=== PATIENT | female | born 1960 | race Caucasian/White ===

== ENCOUNTER 2024-01-23 09:01 | Outpatient (CLI) | payer BC, SELFPAY ==
--- NOTE | ~2024-01-23 | NM_ITS ---
EXAMINATION: NM hepatobiliary w pharm DATE: 01/23/2024 12:10 CDT INDICATION: Epigastric pain COMPARISON: Ultrasound dated 01/23/2024 TECHNIQUE: 5.4 millicuries Choletec was administered intravenously. Scintigraphic images of the abdo men were obtained for one hour. 1 mcg of cholecystokinin was then administered with additional 30 min latrell imaging of the abdomen. Gallbladder ejection fraction was calculated by the technologist. FINDINGS: There is homogeneous tracer uptake by the liver. Common bile duct activity is seen at 15, and gallbladder activity by 20. There is radiotracer activity in the proximal small bowel loops by 6 0. Following administration of cholecystokinin, gallbladder ejection fraction is calculated to be 24 %. IMPRESSION: 1. Patent cystic duct and common bile duct. No scintigraphic evidence for acute cholecystitis. 2. Gallbladder ejection fraction at low (normal is 35% or greater). This is nonspecific, but can be seen with acalculous gallbladder disease, to include chronic acalculous cholecystitis, gallbladder d yskinesia, or cystic duct syndrome. Reviewed, dictated and finalized at location B. IMPRESSION: 1. Patent cystic duct and common bile duct. No scintigraphic evidence for acu te cholecystitis. 2. Gallbladder ejection fraction at low (normal is 35% or greater). This is n onspecific, but can be seen with acalculous gallbladder disease, to include chr onic acalculous cholecystitis, gallbladder dyskinesia, or cystic duct syndrome.
--- NOTE | ~2024-01-23 | US_ITS ---
Limited ABDOMINAL ULTRASOUND Ordering provider: Porfirio Bethea History: . R10.13 - Epigastric pain . Comparison: None. FINDINGS: LIVER: Normal size and echotexture. No focal hepatic lesions or perihepatic fluid collections are lesvia ntified. Normal flow of the portal vein. GALLBLADDER: Echogenic nonmobile foci are seen in the wall of the gallbladder which may be polyps. Fo llow-up advised. The largest measures 0.9 x 0.7 x 0.8 cm. No evidence for stones, sludge, gallbladder wall thickening or pericholecystic fluid collections. A negative sonographic Pozo's sign was noted . BILIARY DUCTS: No evidence for intra or extrahepatic biliary dilation. Common bile duct measures 3.3 mm in diameter which is within normal limits. PANCREAS: Hypoechoic area in the mid and anterior is measuring 1 x 0.9 x 0.9 cm. Follow-up advised. O therwise, Normal echotexture and size. UPPER ABDOMINAL AORTA: Normal in caliber. IVC: Patent. FREE FLUID: None. IMPRESSION: Echogenic foci in the gallbladder suggestive of polyps. Follow-up advised. Hypoechoic area in the head of the pancreas. Follow-up advised.. Reviewed, dictated and finalized at location A.
== END 2024-01-23 09:02 | disposition home or self-care (01) ==
LOC: ANHIMG 09:03
PROVIDERS: PCP Internal Medicine; Visit Provider Surgery
DX: K82.8 Other specified diseases of gallbladder (principal); R10.13 Epigastric pain
CPT/HCPCS: 76705; 78227; A9537; J2805

== ENCOUNTER 2024-02-24 10:06 | Outpatient (CLI) | payer BC, SELFPAY ==
--- NOTE | 2024-02-24 10:08 | ECG_ITS ---
Test Date: 2024-02-24 10:35:44 Measurements Intervals [place] Rate: 76 P: 61 NV: 178 QRS: -11 QRSD: 82 T: 16 QT: 365 QTc: 410 Interpretive Statements SINUS RHYTHM LOW QRS VOLTAGE IN PRECORDIAL LEADS [QRS DEFLECTION < 1.0 mV IN CHEST LEADS] ANTEROSEPTAL MYOCARDIAL INFARCTION [40+ ms Q WAVE IN V1-V4], PROBABLY OLD No previous ECG available for comparison Electronically Signed On 02-24-2024 11:02:15 CDT by Sebastian Mccracken M.D.
[2024-02-24 12:07] LABS: Basophils Absolute Auto 0.1 K/mm3 (0.0-0.1); Basophils Percent Auto 0.4 % (0.2-1.2); Eosinophils Absolute Auto 0.1 K/mm3 (0-0.3); Eosinophils Percent Auto 0.6 % (0-4.4); Hematocrit 41.5 % (37.0-47.0); Hemoglobin 13.7 g/dL (12.0-15.0); Immature Granulocyte Absolute 0.05 K/mm3 (0.00-0.031); Immature Granulocyte Percent A 0.4 % (0-0.5); Lymphocytes Absolute Auto 1.46 K/mm3 (0.9-3.2); Lymphocytes Percent Auto 10.7 % (18.3-44.2); Mean Corpuscular Hemoglobin 30.7 pg (26-34); Mean Platelet Volume 10.1 fl (7.4-10.4); Neutrophils Percent Auto 80.9 % (45.5-73.1); Platelet Count Result 280 k/mm3 (150-375); Red Blood Count 4.46 M/mm3 (4.2-5.4); White Blood Count 13.6 K/mm3 (4.5-10.0)
[2024-02-24 12:25] LABS: Alanine Aminotransferase 28 U/L (6-35); Albumin Level 4.5 g/dL (3.5-5.1); Alkaline Phosphatase 90 U/L (38-126); Amylase 66 U/L (30-110); Aspartate Amino Transferase 33 U/L (14-36); Bilirubin,Total 0.5 mg/dL (0.2-1.3); Lipase 90 U/L (23-300)
== END 2024-02-24 10:07 | disposition home or self-care (01) ==
PROVIDERS: PCP Internal Medicine; Visit Provider Surgery
DX: K81.1 Chronic cholecystitis (principal); R94.31 Abnormal electrocardiogram [ECG] [EKG]
CPT/HCPCS: 36415; 80076; 82150; 83690; 85025; 86850; 86900; 86901; 93005

== ENCOUNTER 2024-02-25 10:43 | Outpatient (CLI) | payer BC, SELFPAY ==
[2024-02-25 11:00] LABS: Add Urine Microscopic? NO; Appearance Urine Clear (Clear); Bilirubin Urine Negative (Negative); Blood Urine Negative (Negative); Color Urine Yellow (Yellow); Glucose Urine UA Negative (Negative); Ketones Urine Negative (Negative); Leukocyte Esterase Ur Negative LEU/UL (Negative); Nitrate Urine Negative (Negative); Protein Urine Negative (Negative); Specific Grav Ur 1.005 (1.001-1.035); Urobilinogen Urine 0.2 mg/dL (<2.0); pH Urine 7.5 (5.0-9.0)
== END 2024-02-25 10:44 | disposition home or self-care (01) ==
LOC: ANHLAB 10:44
PROVIDERS: PCP Internal Medicine; Visit Provider Surgery
DX: D72.829 Elevated white blood cell count, unspecified (principal)
CPT/HCPCS: 81003

== ENCOUNTER 2024-02-27 00:20 | Day surgery (SDC) | payer BC, SELFPAY ==
[2024-02-20 09:18] VITALS: BMI 22.5
--- NOTE | 2024-02-20 09:26 | PC.NURSE ---
Report to the Outpatient Waiting Room, entrance under the green pavilion located off [facility], at time _1130_ on date _[id number]_. Planned Procedure Time: _130pm_.? Time changes happen often and if your time is changed the preop area will call you the afternoon before. - You and your visitor will be asked to self-screen and do not enter if you have any COVID symptoms. Please call surgeon if you need to reschedule. - A mask is optional within the hospital at this time. Patients may have clear liquids (water, carbonated beverages, clear teas, apple juice) until 3 hours prior to surgery with a maximum of 20 ounces. - No food from midnight until time of surgery and no smoking Take only the following medications with a SIP of water on the morning of surgery: __Trelegy, Azelastine, Flonase__Ok to use nebulizer or albuterol inhaler if needed.__ DO NOT STOP ANY OF YOUR OTHER PRESCRIPTION MEDICATIONS PRIOR TO SURGERY EXCEPT THE FOLLOWING Medications to discontinue per physician ___All vitamins and supplements___ Date to take last [id number]__[id number]_ Please no make-up, nail cuban, hairspray, perfume, deodorant, or body powder the day of surgery.? No jewelry (including any body piercings) or valuables the day of surgery, leave them at home.? Please take a shower or bath the night before, or the morning of, surgery with an antibacterial soap.? Wear comfortable, loose fitting clothing.? - Jewelry must be removed prior to entering the operating room.? Rings and piercings that are not removed may be cut off. - The hospital will not accept responsibility for valuables.? - Please leave all valuables, including medications, at home the day of surgery. If you are going home after surgery, a licensed seasonal driver must drive you home.? - NO public transportation without another adult if you receive anesthesia. - We recommend that an adult stay with you for 24 hours following discharge. - We also recommend that you do not drive, make important decision, drink alcoholic beverages, or take any drugs that were not prescribed by your health care provider for at least 24 hours after your discharge time. Follow any additional instructions given to you from your surgeon. Telephone instructions given to __Tiffany___and asked if any additional questions and then verbalized understanding. Patient advised to call surgeon office or pre surgery nurse liaison [phone] if any additional questions.
--- NOTE | 2024-02-26 17:23 | WPDANESEPPF ---
Anes - Initial Pre Proc Eval Procedure: Operation Date: 02/27/24 12:00 Proposed Procedures p Laparoscopic Cholecystectomy - Porfirio Bethea MD Date/Time: 02/26/24 17:23 Surgeon: Porfirio Bethea MD Pre Op Diagnosis: chronic cholecystitis Patient Data Age: 63 Gender: F Height: 1.65 m Weight: 61.4 kg Allergies Allergy/AdvReac Type Severity Reaction Status Date / Time clavulanic acid Allergy Intermediate Rash Verified 02/27/24 10:36 levofloxacin Allergy Intermediate Rash Verified 02/27/24 10:36 doxycycline Allergy Mild Hives Verified 02/27/24 10:36 Home Medications Medication Instructions Recorded Confirmed Type albuterol 90 mcg/actuation aerosol 90 mcg inhalation QID PRN Dyspnea 01/13/24 02/27/24 History inhaler azelastine 137 mcg (0.1 %) nasal 137 mcg intranasal Q12H 01/13/24 02/27/24 History spray cetirizine 10 mg tablet (All Day 10 mg PO DAILY 01/13/24 02/27/24 History Allergy (cetirizine)) esomeprazole magnesium 40 mg 40 mg PO DAILY 01/13/24 02/27/24 History capsule,delayed release estradiol 0.01% (0.1 mg/gram) 1 appful vaginal DAILY 01/13/24 02/27/24 History vaginal cream (Estrace) fluticasone propionate 50 1 spray intranasal DAILY 01/13/24 02/27/24 History mcg/actuation nasal spray,suspension levalbuterol HCl 1.25 mg/0.5 mL 1.25 mg inhalation Q4H PRN Dyspnea 01/13/24 02/27/24 History solution for nebulization loratadine 10 mg tablet 10 mg PO DAILY PRN Allergy Symptoms 01/13/24 02/27/24 History montelukast 10 mg tablet 10 mg PO DAILY 01/13/24 02/27/24 History triamcinolone acetonide 0.05 % 1 applic topical DAILY PRN hives 01/13/24 02/27/24 History topical ointment calcium 250 mg (as 1 tablet PO DAILY 02/20/24 02/27/24 History citrate)-vitamin D3 5 mcg (200 unit) tablet cholecalciferol (vitamin D3) 50 50 mcg PO DAILY 02/20/24 02/27/24 History mcg (2,000 unit) capsule (Vitamin D3) diphenhydramine HCl 25 mg capsule 25 mg PO TID PRN Itching 02/20/24 02/27/24 History (Benadryl) famotidine 10 mg tablet (Pepcid AC) 10 mg PO DAILY PRN Acid Reflux 02/20/24 02/27/24 History fluticasone fur. 200 mcg-umeclid 1 inh inhalation DAILY 02/20/24 02/27/24 History 62.5 mcg-vilant 25 mcg inhalat.powder (Trelegy Ellipta) magnesium citrate,mag oxide 250 mg 250 mg PO DAILY 02/20/24 02/27/24 History capsule vitamin E (dl, acetate) 180 mg 180 mg PO DAILY 02/20/24 02/27/24 History (400 unit) capsule Patient hx anesthesia problems: post op nausea/vomiting Family hx anesthesia problems: none Results Review: All pre-operative results and documents have been reviewed as part of the pre-operative evaluation. [facility] Past Medical History Medical History Allergic Asthma GERD (gastroesophageal reflux disease) Osteoporosis Family History Family History Other Asthma Diabetes mellitus Heart disease Hypertension Social History Social History Smoking status: Never smoker Alcohol intake: current Drinks per week: 2 Substance use: never Current Housing: Decline to Answer Concerned About Future Housing: Decline to Answer Difficulty Paying Gas/Electric Bills: Decline to Answer Difficulty Paying for Meds: Decline to Answer Currently Unemployed: Decline to Answer Education: Decline to Answer Difficulty w/ Childcare or Family Care: Decline to Answer Living arrangements: with family Spiritual care concerns: No Anes - Eval Final PreProcedure Day of Procedure 02/26/24 17:23 Patient weight: normal Heart: regular rate and rhythm Lungs: clear to auscultation, normal air movement and other (Patient states she used her inhaler this morning) Airway: Mallampati scale class II Neurological: alert and oriented Last oral intake: >/= 8 hours ASA classification: II Emergent: no Anesthetic plan: proceed Anesthesia type and monitoring: general ETT and standard monitoring Results Review: All pre-operative results and documents have been reviewed as part of the pre-operative evaluation. Patient states asthma and GERD are well controlled. Informed Consent: The patient's anesthetic plan and its attendant risks and benefits were discussed with the patient/family/POA. Questions were solicited and answers provided to the satisfaction of the patient/family/POA.
[2024-02-27] VITALS (16 sets, daily range): BP systolic 105–159; BP diastolic 55–85; PULSE 52–87; RESP 12–20; TEMP 36.3–36.4; O2SAT 97–100
[2024-02-27] MEDS: ACETAMINOPHEN 500 MG TABLET 1000 MG PO (10:20)
[2024-02-27] MEDS: LACTATED RINGERS 1,000 ML 30 ML IV CONT ×2 (10:25→13:40)
[2024-02-27] MEDS: KETOROLAC 15 MG/ML VIAL (*BKC) IV PUSH (10:28)
--- NOTE | 2024-02-27 11:55 | WPDHPUPDATE1 ---
History and Physical Update Update Date/Time: 02/27/24 11:55 History and Physical has been reviewed, including an updated exam of the patient. There are NO changes in the patient's condition. Risks, benefits, and alternatives have been discussed and questions answered. Patient agrees to proceed with procedure.
[2024-02-27] MEDS: SCOPOLAMINE 1 MG PATCH 1 PATCH TRANSDERM (12:00)
[2024-02-27] MEDS: ceFAZolin 2 GM/D5W 50 ML 2 GM/50 ML BAG IVPB (12:08)
[2024-02-27 12:09] LABS: Basophils Absolute Auto 0.1 K/mm3 (0.0-0.1); Basophils Percent Auto 0.6 % (0.2-1.2); Eosinophils Absolute Auto 0.1 K/mm3 (0-0.3); Eosinophils Percent Auto 0.5 % (0-4.4); Hematocrit 41.3 % (37.0-47.0); Hemoglobin 13.4 g/dL (12.0-15.0); Immature Granulocyte Absolute 0.05 K/mm3 (0.00-0.031); Immature Granulocyte Percent A 0.5 % (0-0.5); Lymphocytes Absolute Auto 1.68 K/mm3 (0.9-3.2); Lymphocytes Percent Auto 16.8 % (18.3-44.2); Mean Corpuscular HGB Conc 32.4 g/dl (32-36); Mean Corpuscular Hemoglobin 29.7 pg (26-34); Mean Corpuscular Volume 91.6 fl (80-100); Mean Platelet Volume 9.1 fl (7.4-10.4); Monocytes Absolute Auto 0.8 K/mm3 (0.1-0.6); Monocytes Percent Auto 7.8 % (2.6-8.5); Neutrophils Absolute Auto 7.4 K/mm3 (1.3-6.7); Neutrophils Percent Auto 73.8 % (45.5-73.1); Platelet Count Result 245 k/mm3 (150-375); Red Blood Count 4.51 M/mm3 (4.2-5.4); Red Cell Distribution Width 12.6 % (11.5-14.5)
[2024-02-27] MEDS: BUPIVACAINE/EPINEPHRINE 0.5% 50 ML VIAL 20 ML INFILTRATE (12:39)
--- NOTE | 2024-02-27 13:40 | W.PM.PROC2 ---
Procedure Note - Detailed Date of Procedure 02/27/24 Pre-op Diagnosis chronic cholecystitis Post-op Diagnosis Other (Chronic cholecystitis with cholelithiasis) Procedure Performed Laparoscopic cholecystectomy Surgeon Porfirio Bethea MD Flute Teacher Laurel Gallardo [facility] Anesthesia General and Local Indications Patient is a 63-year-old woman who has been experiencing postprandial epigastric pressure-like pain, particularly after greasy or fatty meals. She initially had a CT scan which did not show any abnormalities in the gallbladder but did show a hiatal hernia. She was seen in the office and an ultrasound was done. This showed some possible polyps along the wall of the gallbladder. HIDA scan showed a low gallbladder ejection fraction of 24%. She is taken to surgery now for laparoscopic cholecystectomy. Findings Chronic inflammation, no biliary ductal dilatation, no liver abnormalities. Small opening in the gallbladder near the fundus did show small stones in the gallbladder. No other significant abnormalities Description of Procedure Patient was taken to surgery and induced into general anesthesia. The abdomen is prepped and draped. Trocars were placed in the usual fashion using applied Medical optical trocars and a 5 mm camera. The gallbladder was freed from some omental adhesions. A laparoscopic aspirator was then used to decompress the gallbladder. The cholecystotomy was closed with a Vicryl endoloop. The gallbladder was then retracted anterosuperiorly. Dissection was carried out in the cholecystohepatic triangle. The cystic duct and cystic artery were dissected out clearly. The right hepatic artery came over the common bile duct suggesting an SMA origin. The gallbladder was dissected out away from the liver over its lower 3rd. Critical view was achieved. The cystic duct and cystic artery were then securely clipped and divided. Gallbladder was dissected free of its remaining attachments to the liver. Gallbladder was placed in an Endo-Catch bag and retrieved easily through the 10 11 epigastric trocar. We then looked at the gallbladder fossa. There was still some oozing and we used cautery to achieve hemostasis. We irrigated and suctioned the right upper quadrant repeatedly. All looked good with no evidence of bleeding or bile leak. We then evacuated CO2 and removed the trocar sleeves. Skin wounds were closed with subcuticular 4-0 Monocryl skin suture. Wounds were dressed with Exofin surgical adhesive. Sponge needle counts were correct x2. Estimated Blood Loss -10 Drains No Packing No Pathology Yes (Gallbladder) Complications None Condition Stable Disposition PACU [facility] Billing Surgery - Charge Forward: Surgery Billing (Laparoscopic cholecystectomy)
[2024-02-27] MEDS: fentaNYL CITRATE INJ (*CRX) 100 MCG/2 ML VIAL 25 MCG IV PUSH ×4 (14:15→14:28)
[2024-02-27] MEDS: HYDROmorphone HCL INJ (*CRX) 1 MG/ML SYR 0.5 MG IV PUSH (15:06)
[2024-02-27] MEDS: ONDANSETRON INJ 4 MG/2 ML VIAL IV PUSH (15:48)
[2024-02-27] MEDS: diphenhydrAMINE HCl INJ 50 MG/ML VIAL 12.5 MG IV PUSH (16:17)
== END 2024-02-27 18:06 | disposition home or self-care (01) ==
PROVIDERS: PCP Internal Medicine; Visit Provider Surgery
PROC: 0FT44ZZ Resection of Gallbladder, Percutaneous Endoscopic Approach (ICD-10-PCS; CPT 47562; principal; 2024-02-27 12:00)
DX: R93.89 Abnormal findings on diagnostic imaging of other specified body structures (principal); K81.1 Chronic cholecystitis; K21.9 Gastro-esophageal reflux disease without esophagitis; J45.909 Unspecified asthma, uncomplicated; M81.0 Age-related osteoporosis without current pathological fracture; Z79.51 Long term (current) use of inhaled steroids; Z82.49 Family history of ischemic heart disease and other diseases of the circulatory system
CPT/HCPCS: 47562; 36415; 85025; 88304; A9270; J0690; J1100; J1171; J1200; J1885; J2003; J2250; J2371; J2405; J2704; J3010; J7120

== ENCOUNTER 2024-08-24 07:55 | Outpatient (CLI) | payer BC, SELFPAY ==
--- NOTE | ~2024-08-24 | US_ITS ---
Limited ABDOMINAL ULTRASOUND (Doppler ultrasound interrogation techniques used as needed for this exdominguez m.) Ordering provider: Porfirio Bethea MD History: . R93.5 - Abnormal findings on diagnostic imaging of other ... . Comparison: None. FINDINGS: PANCREAS: Hypoechoic area seen measuring 1 x 1 x 0.9 cm. Normal echotexture and size. PORTAL VEIN: Hepatopedal flow demonstrated. LIVER: Normal size and echotexture. The liver measures 13.8 cm. . No focal hepatic lesions or perihep atic fluid collections are identified. BILIARY DUCTS: No intra or extrahepatic biliary dilation. Common bile duct measures 4.5 mm in diamete r which is normal for patient's age. GALLBLADDER: Status post cholecystectomy. IVC: Patent. Abdominal aorta: Patent. FREE FLUID: None visualized within the upper abdomen. IMPRESSION: Cyst in the pancreas at the junction of the head with the body. IPMN is possible. Follow-up advised. Otherwise, normal limited abdominal ultrasound. Reviewed, dictated and finalized at location A. IMPRESSION: Cyst in the pancreas at the junction of the head with the body. IPMN is possibl e. Follow-up advised. Otherwise, normal limited abdominal ultrasound.
--- OUTSIDE RECORDS SUMMARY | 2024-08-24 08:04 | XMS_ITS | Data Portability ---
Author Organization [facility] [employer] , [facility] Address [address] [place] [address] Assessment No assessment recorded. Plan of Treatment Reminders Order Date Submit Date Provider Last Modified By Organization Details Last Modified Time Details Appointments None recorded. Lab HPV E6+E7 mRNA, qualitativ e PCR, cervix 2021 022 [facility] Marcelino, [address] [place] [address], [address], 16:39:48 pap, LB 2021 022 [employer] [employer] [facility], [address] [place], [address], 16:40:44 Referral None recorded. Procedures None recorded. Surgeries None recorded. Imaging MAMMO, screening, digital, bilateral 2021 022 [email or web address] Not available 14:04:11 Medication Orders Premarin 0.625 mg/gram vaginal cream 2021 022 [id number] [facility], [facility] [place], [address], 11:29:54 Patient TargetsNo targets recorded. Patient Instructions Encounter Date Encounter Id Patient Instructions Last Modified By Organization Details Last Modified Time 07/10/2021 [id number] A healthy lifestyle: care instructions [email or web address] Not available 07/10/2021 11:29:54 calcium and vitamin D combination [email or web address] Not available 07/10/2021 11:29:55 depression (wome n only) [email or web address] Not available 07/10/2021 11:29:55 eating healthy foods: care instructions [email or web address] Not available 07/10/2021 11:29:54 exercise program : getting started [email or web address] Not available 07/10/2021 11:29:54 protect bone wit h calcium and vitamin D [email or web address] Not available 07/10/2021 11:29:55 osteoporosis education [email or web address] Not available 07/10/2021 11:29:55 breast self-exam : care instructions [email or web address] Not available 07/10/2021 11:29:55 Reason for Referral None Reported. Results Created Date Observation Date Name Description Value Unit Range Abnormal Flag Note LastModifiedBy Organization Detail LastModifiedTime 07/11/1907/12/2021 HPV HIGH RISK HPV high risk Negati ve negati ve The HPV High Risk assay is inten ded for use as co-te sting with cytol ogy and not as a subst itute for regul ar cervi sandy cytol ogy scree jake. This assay is not inten ded for use as a scree jake devic e for women under age 30 with krystyna l cervi sandy cytol ogy. Not Available [facility] [address] [place], [address], 07/12/2021 16:39:48 07/11/19 22 07/12/2021 THINP REP TIS PAP clinical information: normal Infor matio n not provi ded Not Available [employer] [address] [address] [place], [address], 07/12/2021 16:40:44 07/11/19 22 07/12/2021 THINP REP TIS PAP LMP: normal Infor matio n not provi ded Not Available [facility] [address] [place], [address], 07/12/2021 16:40:44 07/11/19 22 07/12/2021 THINP REP TIS PAP prev. Pap: normal Infor matio n not provi ded Not Available [employer] [facility] [address] [place], [address], 07/12/2021 16:40:44 07/11/19 22 07/12/2021 THINP REP TIS PAP prev. BX: normal Infor matio n not provi ded Not Available [address], [address], 07/12/2021 16:40:44 07/11/19 22 07/12/2021 THINP REP TIS PAP source: normal Cervi x Not Available [address], [address], 07/12/2021 16:40:44 07/11/19 22 07/12/2021 THINP REP TIS PAP statement of adequacy: normal Satis facto ry for evalu ation . Endoc ervic al/tr ansfo rmati on zone compo nent prese nt. Not Available [address], [address], 07/12/2021 16:40:44 07/11/19 22 07/12/2021 THINP REP TIS PAP interpretati on/result: normal Negat russ for intra epith elial lesio n or malvamsi claudio . Not Available [address] [place], [address], 07/12/2021 16:40:44 07/11/19 22 07/12/2021 THINP REP TIS PAP comment: normal This Pap test has been evalu ated with compu ter cathi tere techn ology . Not Available [address] [place], [address], 07/12/2021 16:40:44 07/11/19 22 07/12/2021 THINP REP TIS PAP cytotechnolo gist: normal MIRIAM, CT( CP) CT scree jake locat ion: [address] [place] [address] Not Available [address] [address] [place], [address], 07/12/2021 16:40:44 07/11/19 22 07/12/2021 THINP REP TIS PAP comment EXPLA NATOR Y NOTE: The Pap is a scree jake test for cervi sandy cance r. It is not a diagn ostic test and is subje ct to false negat russ and false posit russ resul ts. It is most relia ble when a satis facto ry sampl e, regul yg obtai chris, is submi tted with relev ant clini sandy findi ngs and histo ry, and when the Pap resul t is evalu ated along with histo finesse and curre nt clini sandy infor matio n. Not Available [address] [address] [place], [address], 07/12/2021 16:40:44 Result Notes None recorded. Problems No Known Problems Procedures Surgical History Date Name Laterality Status Provider Name and Address Organization Details Recorded Time 12/09/19 21 Most Recent Mammogram completed [facility] 07/08/2021 00:37:22 06/20/19 18 Date of Last Pap Smear completed [facility] 07/08/2021 00:36:25 laparoscopy completed Sherry [facility] 07/08/2021 00:37:57 Imaging Results None recorded. Procedure Notes None recorded. Medical Equipment None Reported. Allergies Allergen ID Allergen Name Allergen Category Reaction Reaction Severity Criticality Documentation Date Start Date Code Code System Note Provider Name and Address Organization Details Recorded Time 309129 Product containin g penicilli n (product) medicatio n Not available Not available Not available 02/17/20212017 85052 8001 SNOMED Sever ity: Moder ate; Not Available Not Available Not Available 942090 Medicinal product containin g macrolide and acting as antibacte rial agent (product) medicatio n Not available Not available Not available 02/17/20212017 87541 8007 SNOMED Sever ity: Moder ate; Not Available Not Available Not Available 417737 Augmentin medicatio n diarrhea moderate Not available 02/17/20212019 04457 2 RxNorm React ion: diarr hea;S everi ty: Moder ate; Not Available Not Available Not Available Medications Name Sig Start Date Stop Date Status Note LastModified by Organization Details LastModified Time prednison e 10 mg tablet 4 TABS X 3 DAYS, 3 TABS X 3 DAYS, 2 TABS X 3 DAYS, 1 TAB X 3 DAYS active Not Available Not Available No t Available azithromy nicole 250 mg tablet TAKE 2 TABLETS BY MOUTH TODAY, THEN TAKE 1 TABLET DAILY FOR 4 DAYS active Not Available Not Available No t Available benzonata te 200 mg capsule TAKE 1 CAPSULE (200 MG TOTAL) BY MOUTH 3 (THREE) TIMES DAILY NEEDED FOR COUGH. active Not Available Not Available No t Available prednison e 20 mg tablet TAKE 2 TABLETS BY MOUTH EVERY DAY FOR 5 DAYS active Not Available Not Available No t Available triamcino lone acetonide 0.5 % topical ointment APPLY TO AFFECTED AREA TWICE A DAY active Not Available Not Available No t Available esomepraz ole magnesium 40 mg capsule,d elayed release TAKE 1 CAPSULE BY MOUTH EVERY DAY BEFORE BREAKFAS T active Not Available Not Available No t Available omeprazol e 20 mg capsule,d elayed release active Not Available Not Available Not Available monteluka st 10 mg tablet Take 1 tablet(s ) by mouth daily active Not Available Not Available No t Available estradiol 0.01% (0.1 mg/gram) vaginal cream . active Not Available Not Available Not Available albuterol sulfate HFA 90 mcg/actua tion aerosol inhaler INHALE 2 PUFFS EVERY 4 HOURS NEEDED FOR WHEEZING OR SHORTNES S OF BREATH active Not Available Not Available No t Available fluticaso ne propionat e 50 mcg/actua tion nasal spray,mirna pension active Not Available Not Available Not Available ipratropi um bromide 21 mcg (0.03 %) nasal spray ADMINIST ER 2 SPRAYS INTO EACH NOSTRIL EVERY 12 HOURS. active Not Available Not Available No t Available azithromy nicole 500 mg tablet TAKE 1 TABLET BY MOUTH EVERY DAY FOR 5 DAYS active Not Available Not Available No t Available Premarin 0.625 mg/gram vaginal cream 0.5 gm per vagina twice a week 2022 active Not Available Not Available Not Avai lable Prozac 07/24 completed Not Available Not Available Not Available Glucosami ne 07/10 completed Glucosam ine Allow Substitu tion: False Refill Denied: No Refill DateOccu rred: 02/01/20 Edited by: inés howard(Zaynab Peck ) on 02/01/20 20 Stopped by: inés howard(Zaynab Peck ) on Not Available Not Available Not Available Zte 2017 active Zte RxNorm: 25506 Allow Substitu tion: True Refill Denied: No Refill DateOccu rred: 06/20/19 18 Edited by: brian estrada([employer], INCchaim fessel, Dulce A) on 01/14/20 19 Stopped by: brian estrada(Hector de la rosa Dulce A) on Not Available Not Available Not Available Premarin 0.5 gm per vagina twice a week 01/13 completed Premarin 0.625mg/ 1gm Vaginal Cream RxNorm: 408403 Allow Substitu tion: True Refill Denied: No Refill Note: Refill Prescrib ed Refill DateOccu rred: 06/11/19 18 Not Available Not Available Not Available Symbicort 160 mcg-4.5 mcg/actua tion HFA aerosol inhaler INHALE 2 PUFFS BY MOUTH 2 TIMES A DAY RINSE MOUTH WITH WATER AFTER USE. DO NOT SWALLOW. active Not Available Not Available No t Available Flonase Allergy Relief 07/10 completed Flonase Allergy Relief Allow Substitu tion: True Refill Denied: No Refill DateOccu rred: 06/11/19 18 Edited by: brian estrada([employer], INCchaim fessel, Dulce A) on 01/14/20 19 Stopped by: brian estrada([employer], INCk fessel, Dulce A) on Not Available Not Available Not Available Vitals Date Recorded Body weight Body mass index (BMI) Body height Systolic blood pressure Diastolic blood pressure Provider Name and Address Organization Details Last Updated DateTime 07/10/2021 66412.93 g 23.3 kg/m2 165.1 cm 122 mm[Hg] 80 mm[Hg] Briseida [facility] 2 11:20:27 Social History Question Answer Notes LastModified by Organizat ion Details LastModified Time How Many Children Do You Have? 0 [email or web address] Information not available 07/10/2021 What Is Your Relationship Status? [email or web address] Information not available 07/10/2021 Are You Sexually Active? Yes [email or web address] Information not available 07/10/2021 Sex: Unknown Functional Status None recorded. Mental Status None recorded. Family History Relationship Description Onset Age of this Age Resolved Age Notes LastModified by Organization Details LastModified Time Father Disorder of coronary artery [email or web address] Not available 06/27 00:38:20 Father Hypertensive disorder [email or web address] Not available 06/27 00:38:30 Father Type 2 diabetes mellitus [email or web address] Not available 06/27 00:38:42 Mother Alzheimer's disease [email or web address] Not available 06/27 00:38:53 Medical History Condition Response Seasonal allergies Y Gynecological History Statement/Question Response Date of Last Pap Smear 06/20/2017 Most Recent Mammogram 12/08/2020 Current Control Method Menopause Date of LMP Obstetrics History GPAL:G 0 P 0 0 0 0 Past Encounters Encounter ID Performer Location Encounter Start Date Encounter Closed Date Diagnosis/Indication Diagnosis SNOMED-CT Code Diagnosis ICD10 Code Diagnosis Note [id number] LARISA Andrea [facility] [address] [place] [address] 07/10/2021 11:15:32 07/10/2021 11:37:50 Gynecologic examination 31313746 Z01.419 Screening for malignant neoplasm of cervix 494179189 Z12.4 Screening for malignant neoplasm of breast 900466769 Z12.39 Screening for osteoporosis 342618305 Z13.820 Atrophic vaginitis 03444 000 N95.2 Health Concerns Section Related Observation LastModified by Organization Detai ls LastModified Time None Recorded Concern Status LastModified by Organization Details LastModified Time None Recorded Advance Directives Directive None Recorded Payers Encounter Date Sequence Insurance Name Policy Number Policy Simeon Covered Member ID Simeon Member ID Guarantor Name 07/10/2021 1 [place] [id number] Raoul Gross [id number] Tiffany Gross Notes Date Note Type Note Provider Name and Address Organization Details Recorded Time 07/10/2021 text/html Annual GYNReport ed bypatient.Menstrua l cycle:Normal menses Urinary symptoms:No hematuria; No incontinence Vulva:No genital lesion Vagina:Normal vaginal discharge Breast:No breast pain; No breast lump; No nipple discharge Sexual complaints:No sexual complaints; No pain during intercourse; Normal libido Menopausal Symptoms:No menopausal symptoms; Normal vaginal lubrication Psychological symptoms:No depression; No anxiety; No PMDD Tiffany is here for her AEX. She is doing well on Premarin for her vaginal atrophy and requests refills. She is UTD on her mammogram. LARISA Andrea [address] [facility], [place], [address], [facility] 07/10/2021 13:18:41 OBGyn Episode No OBEpisode recorded.
--- OUTSIDE RECORDS SUMMARY | 2024-08-24 08:04 | XMS_ITS | Clinical Summary ---
Author Organization [facility] Address [address] [place] [id number] Care Team Providers Care Forcer Maker Name Role Phone Sharron Lamar MD Primary Care Provider Allergies Active Allergy Reactions Criticality Noted Date Comments Amoxicillin-Pot Clavulanate Rash,Stomach upset Medium 07/28/2018 Clavulanic Acid Rash Medium 02/09/2019 Doxycycline Hyclate Rash Medium 07/28/2018 Levofloxacin Other (See comments),Fatigue High 05/07/2023 Feet and hands became tingly Medications cetirizine (ZyrTEC) 10 mg tablet Take 1 tablet (10 mg total) by mouth daily Active loratadine (CLARITIN) 10 mg tablet Take 1 tablet (10 mg total) by mouth daily Active triamcinolone (KENALOG) 0.5 % ointment Apply topically 2 (two) times a day 15 g 1 2 Active Safia Palacio [facility] spacer USE WITH INHALER FOR ASTHMA 3 Active Vios Aerosol Delivery System device as directed 3 Active albuterol HFA (Proventil HFA) 90 mcg/actuation inhaler Inhale 2 puffs every 4 (four) hours as needed for wheezing or shortness of breath 6.7 g 11 3 Active levalbuterol (XOPENEX) 1.25 mg/3 mL nebulizer solution Take 3 mL (1.25 mg total) by nebulization every 6 (six) hours as needed for wheezing 300 mL 2 4 Active azelastine (ASTELIN) 137 mcg (0.1 %) nasal sprayIndicatio ns:Rhinits Administer 1 spray into each nostril 2 (two) times a day 30 mL 5 4 Active fluticasone-um eclidin-vilant er (Trelegy Ellipta) 200-62.5-25 mcg inhaler Inhale 1 puff daily 180 each 3 5 Active estradioL (ESTRACE) 0.01 % (0.1 mg/gram) vaginal cream Insert 1 g into the vagina 3 (three) times a week 42.5 g 11 5 Active fluticasone propionate (FLONASE) 50 mcg/actuation nasal spray Administer 1 spray into each nostril 2 (two) times a day 48 g 3 5 Active montelukast (SINGULAIR) 10 mg tablet Take 1 tablet (10 mg total) by mouth daily 90 tablet [address] (NexIUM) 40 mg capsule Take 1 capsule (40 mg total) by mouth daily before breakfast 90 capsule [address] (NexIUM) 40 mg capsule Take 1 capsule (40 mg total) by mouth daily before breakfast 90 capsule 3 4 025 Discontin ued(Reord er) fluticasone propionate (FLONASE) 50 mcg/actuation nasal spray Administer 1 spray into each nostril 2 (two) times a day 48 g 3 4 025 Discontin ued(Reord er) cetirizine (ZyrTEC) 10 mg capsule 8 025 Discontin ued(Dupli chandra order) montelukast (SINGULAIR) 10 mg tablet TAKE 1 TABLET DAILY 90 tablet 1 5 025 Discontin ued(Reord er) Active Problems Problem Noted Date Diagnosed Date Seasonal allergic rhinitis due to pollen 024 Overview (10/08/2023): Skin testing 10/20 + Trees , Grasses , Dust mites , and cockroach Chronic cough 10/08/2023 Recurrent sinusitis 10/08/2023 Osteoporosis 08/06/2022 Assessment & Plan (08/13/2022 1:51 PM CDT): We discussed her score of -3.9 and recommend medication. She currently declines fosamax due to family hx with medication and current allergies. We did discuss risk for compression fracture and hip fracture. Given names of alternative medication options to review to determine if she may feel comfortable with alternative. Eczema 08/10/2021 Assessment & Plan (08/10/2021 10:06 PM CDT): Midback triamcinolone Gastritis 07/24/2020 Assessment & Plan (08/10/2021 10:05 PM CDT): Intermittent ppi Diet controlled (has stopped red wine and chocolate) Assessment & Plan (07/24/2020 8:59 PM CDT): Improved on prilosec Vitamin D deficiency 02/05/2019 Assessment & Plan (08/10/2021 10:04 PM CDT): On vit d supplement, recheck Assessment & Plan (07/24/2020 9:01 PM CDT): Cont daily vitamin d [id number] international units daily Assessment & Plan (02/05/2019 12:06 PM CDT): Recheck now Continue vit d Palpitation 02/05/2019 Assessment & Plan (07/24/2020 9:00 PM CDT): Stable, only occasionally bothers her Assessment & Plan (02/05/2019 12:07 PM CDT): eduardo reviewed 07/28/2018 3 apc's, vpc's but no tachyarrhtymia Asthma Overview (07/24/2020): Under Control Assessment & Plan (08/10/2021 10:07 PM CDT): Stable Cont albuterol prn Cont singulair Assessment & Plan (07/24/2020 9:01 PM CDT): Stable, hasnt needed albuterol for over 1 year Resolved Problems Problem Noted Date Diagnosed Date Resolved Date Skin lesion 08/10/2021 05/23/2022 Assessment & Plan (08/10/2021 10:06 PM CDT): Along R eyebrow- likely SK but considering acuity and more raised/pearly appearance, advise derm eval- referral placed Fatigue 08/10/2021 05/23/2022 Assessment & Plan (08/10/2021 10:09 PM CDT): Preventative labwork normal Check tfts , vit d and b12 Bronchitis 02/05/2019 05/23/2022 Preventative health care 02/05/2019 Assessment & Plan (08/10/2021 10:05 PM CDT): cscope due 03/2029 rec shingrix mammo due 11/2021- ordered as in between gynes now Referral placed for [facility] for pap Assessment & Plan (07/24/2020 9:03 PM CDT): S/p normal cscope with dr serrano 03/2019 Discussed shingrix Mammogram due 11/2020- *ordered by Dr. Blum Assessment & Plan (02/05/2019 12:04 PM CDT): Discussed cscope- she will consider- referral made to Dr. Serrano in case, she will call about cologuard otherwise Mammogram due 06/2019- normal 06/2018 Repeat flp around 06/2019 shingrex- at outside pharm Flu today Acute recurrent maxillary sinusitis 02/05/2019 05/23/2022 Assessment & Plan (02/05/2019 12:05 PM CDT): flonase [place] nasal spray Singular/zyrtec zapak Allergic 10/08/2023 Overview (07/24/2020): Seasonal Allergies Assessment & Plan (07/24/2020 9:01 PM CDT): Cont zyrtec/claritin and prn benadryl Cont singulair Encounters Date Type Department Care Team Description 08/20/2024 1:00 PM CDT Office Visit [facility] [address] [place] [phone] Sharron Lamar MD Routine general medical examination at a health care facility (Primary Dx); Moderate persistent asthma without complication; Vitamin D deficiency; Age-related osteoporosis without current pathological fracture; Pancreatic cyst from Last 3 Months Immunizations Immunization Administration Dates Next Due Influenza, Quadrivalent, Rec ombinant, Egg Free, Preservative Free, Intramuscular 01/30/2018 Influenza, Quadrivalent, Spl it, Preservative Free, Intramuscular 02/06/2022,01/29/2020,02/05/2019,01/29,02/24/2016 Influenza, Trivalent, Preser vative Free, Intramuscular 02/04/2024 Influenza, Unspecified 02/01/2023 [facility] SARS-CoV-2 Monovalent Vaccination (12+ Yrs) PURPLE 04/03/2021,02/20/2021,07/09/2020,06/13 Pneumococcal Conjugate PCV 13 04/29/2004 Pneumococcal Polysaccharide PPV23 08/10/2021 TD Preservative Free 04/29/2012 Td, Unspecified 01/26/2002,08/26/1992 Tdap 08/15/2023,04/29/2012 ZOSTER Recombinant 12/31/2023,09/09/2023 Surgical History Surgery Date Site/Laterality Comments LAPAROSCOPY 1989 CHOLECYSTECTOMY Medical History Medical History Date Comments Allergic Seasonal Allergi es Asthma Under Control GERD (gastroesophageal reflux disease) off and o n for a while! Family History Medical History Relation Name Comments Allergy (severe) Father Jose Diabetes Father Jose Heart attack Father Jose Heart disease Father Jose Hypertension Father Jose Prostate cancer Father Jose Alzheimer's disease Mother Florence Osteoporosis Mother Florence Asthma Sister 1 Es Asthma Sister 2 Sunni Breast cancer Neg Hx Colon cancer Neg Hx Ovarian cancer Neg Hx Pancreatic cancer Neg Hx Uterine cancer Neg Hx Relation Name Status Comments Father Jose Mother Florence Sister 1 Es Sister 2 Sunni Social History Tobacco Use Types Packs/Day Years Used Date Smoking Tobacco: Never Cigarettes Smokeless Tobacco: Never Tobacco Cessation:Counseling Given: Not Answered Alcohol Use Standard Drinks/Week Comments Yes 0 (1 standard drink = 0.6 oz pur e alcohol) Social AUDIT-C Answer Date Recorded Q1: How often do you have a drink containing alc ohol? Monthly or less 07/13/2022 Average Number of Drinks Not on file 023 Frequency of Binge Drinking Not on file 06/27 PHQ-2 Answer Date Recorded PHQ-2 Total Score (If total score is 3 or more points, staff should administer the PHQ-9) 0 08/20/2024 Comments No Sex and Gender Information Value Date Recorded Sex Assigned at Not on file Legal Sex Female 9:04 PM PLANNING OFFICIAL Gender Identity Female 07/19/2020 7:28 PM CDT Sexual Orientation Not on file Obstetrics History Para Term AB IAB SAB Ectopic Multiple Livin g Live Births 0 0 0 0 0 0 0 0 0 0 0 Last Filed Vital Signs Vital Sign Reading Time Taken Comments Blood Pressure 128/70 08/20/2024 12:48 PM CDT Pulse 80 08/20/2024 12:48 PM CDT Temperature 36.3 C (97.4 F) 08/20/2024 12:48 PM CDT Respiratory Rate 18 05/21/2024 9:42 AM PLANNING OFFICIAL Oxygen Saturation 96% 08/20/2024 12:48 PM CDT Inhaled Oxygen Concentration - - Weight 62.1 kg (137 lb) 08/20/2024 12:48 PM CDT Height 165.1 cm (5' 5 ) 08/20/2024 12:48 PM CDT Body Mass Index 22.8 08/20/2024 12:48 PM CDT Plan of Treatment Health Maintenance Due Date Last Done Comments Hepatitis C Screening 1960 Hepatitis B Screening 1980 Covid-19 Vaccine (2023-05 5 season) 2023 04/03/2021, 02/20/2021, 07/30/2020, Additional history exists Breast Cancer Screening-Mammogram 03/19/2025 03/19/2024, 03/04/2023, 12/11/2021, Additional history exists Depression Screening 08/20/2025 08/20/2024, 03/18/2024, 12/13/2023, Additional history exists Regular Well Visit/Exam 18-64 08/20/2025, 08/15/2023, 07/15/2023, Additional history exists Pneumococcal vaccine <65 (3 of 3 - PCV20 or PCV21) 08/10/2026 08/10/2021, 04/29/2004 Cervical Cancer Screening 07/14/2027 07/13/2022, Colon Cancer Screening-Colonoscopy 04/17/2029 04/17/2019 DTaP/Tdap/Td Vaccine (4 - Td or Tdap) 08/14/2033 08/15/2023, 04/29/2012, 04/29/2012, Additional history exists Colon Cancer Screening-CT Colonography Discontinued 04/17/2019 Colon Cancer Screening-DNA Stool Discontinued 04/17/20 Colon Cancer Screening-FIT Discontinued 04/17/2019 Colon Cancer Screening-Sigmoidoscopy Discontinued 04/17/2019 Zoster Vaccine Completed 12/31/2023, 09/09/2023 Influenza Vaccine Completed 02/04/2024, , 02/06/2022, Additional history exists Procedures Procedure Name Priority Date/Time Associated Diagnosis Comments SCREENING MAMMOGRAM BILATERAL W FREDERICK Schedule Routine, Read Routine (OP Routine) 03/19/2024 12:31 PM PLANNING OFFICIAL Screening mammogram, encounter for PAP AND HIGH RISK HPV, REFLEX TO GENOTYPING Routine 07/13/2022 8:19 AM CDT Well woman exam HM COLONOSCOPY Routine 04/17/2019 from Last 3 Months or Most Recently Relevant to Health Maintenance Results * Screening Mammogram Bilateral W Frederick (03/19/2024 12:31 PM PLANNING OFFICIAL) Anatomical Region Laterality Modality Breast Bilateral Mammography Narrative 03/19/2024 11:37 AM PLANNING OFFICIAL Examination: Screening Mammogram Bilateral W Frederick: Clinical: Screening mammogram, encounter for. Prior Study Comparisons: Findings: Screening Mammogram Bilateral W Frederick Bilateral No significant masses, malignant type calcifications, skin thickening, nipple retraction, or significant lymphadenopathy is noted in either breast. Computer Aided Detection was utilized for the interpretation of this study. The breasts are heterogeneously dense, which may obscure small masses. The patient will be notified of results by letter. Impression: BI-RADS ATLAS category (overall): 2 - Benign There is no mammographic evidence of malignancy. Routine Screening Mammogram in 1 Yr is recommended for bilateral Overall Assessment: 2 - Benign us Self Screening Mammogram IMG MAMMO PROCEDURES Fi nal Result * Pap and High Risk HPV, reflex to Genotyping (07/13/2022 8:19 AM CDT) Thin prep (Pap test) 07/13/2022 8:19 AM CDT 07/16/2022 8:19 AM CDT Narrative PATHOLOGY [facility] - 07/18/2022 1:52 PM CDT [facility] Department of Pathology [address] [place] [address] Final Report with Addendum Note to Patients: This report may contain a detailed description of human tissue sent by a health care provider to the laboratory for pathologic evaluation. The content of this report is essential for diagnosis and may provide important critical findings. This information may be unfamiliar to patients to review without a medical professional present. It is advised that the patient review this report in the presence of a health care provider who can answer questions and explain the details. Patient Name: MAT GROSS Address: [address] [place] [address] Gender: F : 1960 (Age: 62) Service: Location: [facility] : [id number] [place] [facility] #: [id number] Patient Type: [facility] SPECIMEN Taken: 07/13/2022 Received: 07/16/2022 Accessioned:: 07/17/2022 Reported: 07/18/2022 Physician(s): Irma Harrison M.D. [facility] Diagnosis: Source of Specimen: SCREENING THIN PREP IMAGED PAP w/ HPV: Specimen Adequacy: - Satisfactory for evaluation; endocervical/transformation zone component present General Categorization: - Negative for intraepithelial lesion or malignancy EMRE Arenas(ASCP) Report Electronically Reviewed and Signed Out By ZULEYMA ArenasASCP) 07/18/2022 13:52:35Addenda: HPV Test Interpretation NEGATIVE for types 16, 18, 31, 33, 35, 39, 45, 51, 52, 56, 58, 59, 66 and 68. Test performed utilizing Gen-Probe Aptima assay. EMRE Arenas(ASCP)Report Electronically Reviewed and Signed Out By ZULEYMA ArenasASCP) 07/17/2022 15:04:29 Specimen(s) Received: A: SCREENING THIN PREP IMAGED PAP w/ HPV Clinical History: Menstrual History: Post-menopausal The Pap test is a screening test used to aid in the detection of cervical cancer and its precursors. It should not be the sole means by which malignant and premalignant lesions are diagnosed. Both false negative and false positive results may occur. It also has poor sensitivity for the detection of endometrial lesions and should not be used to evaluate suspected endometrial abnormalities. For these reasons it is most important to obtain Pap tests at regular intervals. The performance characteristics of some immunohistochemical stains, fluorescence in-situ hybridization tests and immunophenotyping by flow cytometry cited in this report (if any) were determined by the Surgical Pathology Department at [facility] as part of an ongoing design quality engineer program and in compliance with federally mandated regulations drawn from the Clinical Laboratory Improvement Act of 1988 (CLIA '88). Some of these tests rely on the use of analyte specific reagents and are subject to specific labeling requirements by the US Food and Drug Administration. Such diagnostic tests may only be performed in a facility that is certified by the Department of Health and Human Services as a high complexity laboratory under CLIA '88. The FDA has determined that such clearance or approval is not necessary. This test is used for clinical purposes. It should not be regarded as investigational or for research. Nevertheless, federal rules concerning the medical use of analyte specific reagents require that the following disclaimer be attached to the report: This test was developed and its performance characteristics determined by the Surgical Pathology Department [facility]. It has not been cleared or approved by the U. S. Food and Drug Administration. Irma Harrison MD LAB CYTOLOGY ORDERABLES Final Result PATHOLOGY [facility] * COLONOSCOPY (04/17/2019) Scribed Colonoscopy Normal Mariam Serrano MD HEALTH MAINTENANCE Final Result from Last 3 Months or Most Recently Relevant to Health Maintenance Insurance [employer] ACCESS CHOICE [employer] ACCESS CHOICE ANTHEM ACCESS CHOICE Care Teams Forcer Maker Relationship Specialty Start Date End Date Sharron Lamar MD [address] [place] [id number] PCP - General Internal Medicine 05/23/22
--- OUTSIDE RECORDS SUMMARY | 2024-08-24 08:04 | XMS_ITS | Encounter Summary ---
Author Organization [facility] Care Team Providers Care Appraisal Technician Name Role Phone Es Carpenter MD Primary Care Provider [phone] Sharron Lamar MD Primary Care Provider Encounter Details Date Type Department Care Team (Latest Contact Info) Description 04/16/2017 Orders Only [facility] CLINCONV ProviderClarence MD [address] [place] [id number] Social History Tobacco Use Types Packs/Day Years Used Date Smoking Tobacco: Never Assessed Comments Unknown Sex and Gender Information Value Date Recorded Sex Assigned at Not on file Legal Sex Female 9:04 PM MARKET ANALYSIS DIRECTOR Gender Identity Female 07/19/2020 7:28 PM CDT Sexual Orientation Not on file documented as of this encounter Plan of Treatment Not on file documented as of this encounter Procedures Procedure Name Priority Date/Time Associated Diagnosis Comments CARDIOLOGY REPORT 04/16/2017 12: 00 AM MARKET ANALYSIS DIRECTOR documented in this encounter Results * CARDIOLOGY REPORT (04/16/2017 12:00 AM MARKET ANALYSIS DIRECTOR) Anatomical Region Laterality Modality Other Narrative 04/16/2017 12:00 AM MARKET ANALYSIS DIRECTOR Ordered by an unspecified provider. Historical Provider [facility] SHERRI BALBUENA Final Result documented in this encounter Visit Diagnoses Not on filedocumented in this encounter Care Teams Appraisal Technician Relationship Specialty Start Date End Date Es Carpenter MD [address] [place] [id number] PCP - General Internal Medicine 02/05/19 05/22/22 Sharron Lamar MD [address] [place] [phone] PCP - General Internal Medicine 05/23/22 documented as of this encounter
--- OUTSIDE RECORDS SUMMARY | 2024-08-24 08:04 | XMS_ITS | Clinical Summary ---
Author Organization [facility] Address [address] [place] [address] Care Team Providers Care Lip Reading Teacher Name Role Phone Sharron Lamar MD Primary Care Provider [phone] Allergies Active Allergy Reactions Criticality Noted Date Comments Amoxicillin-Pot Clavulanate GI Upset 01/13/20 22 Doxycycline GI Upset 01/12/2022 Medications cetirizine (ZYRTEC) 10 MG tablet Take 10 mg by mouth daily. Active fluticasone propionate (FLONASE) 50 MCG/ACT nasal spray 1 spray by Each Nostril route 2 (two) times daily. 2 Active montelukast (SINGULAIR) 10 MG tablet Take 10 mg by mouth daily. 2 Active albuterol sulfate HFA 108 (90 Base) MCG/ACT inhaler INHALE 2 PUFFS EVERY 4 HOURS NEEDED FOR WHEEZING OR SHORTNESS OF BREATH Active AZELASTINE 137 MCG/SPRAY nasal spray administer 1 spray into each nostril 2 times a day. Active esomeprazole (NEXIUM) 40 MG capsule Take 1 capsule (40 mg total) by mouth every morning before breakfast. Active estradiol (ESTRACE) 0.1 MG/GM vaginal cream . Active loratadine (CLARITIN) 10 MG tablet Take 1 tablet (10 mg total) by mouth daily. Active levalbuterol (XOPENEX) 1.25 MG/3ML nebulizer solution 4 Active TRELEGY ELLIPTA 200-62.5-25 MCG/ACT AEROSOL POWDER, BREATH ACTIVATED Inhale 1 puff into the lungs daily. 4 08/20/19 25 Active Problems Problem Noted Date Diagnosed Date Fatigue 08/10/2021 Overview (06/02/2024): Last Assessment & Plan: Preventative labwork normal Check tfts , vit d and b12 Palpitations 07/24/2012 Overview (06/02/2024): Last Assessment & Plan: Stable, only occasionally bothers her Encounters Date Type Department Care Team Description 06/23/2024 2:05 PM C JAVA DEVELOPER - 06/23/2024 11:59 PM C JAVA DEVELOPER Hospital Encounter [facility] [address] [place] [address] Barbara Syed MD Discharge Disposition: Home or Self Care (Routine Discharge) 06/23/2024 Travel 06/22/2024 [employer] Message Enc [facility] [address] [place] [address] [facility] instructions 06/08/2024 Telephone [facility] [address] [place] [address] Barbara Syed MD Information ([facility]) 06/05/2024 Telephone [facility] [address] [place] [address] Barbara Syed MD Information ([facility]) 06/04/2024 2:00 PM C JAVA DEVELOPER Office Visit [facility] [address] [place] [address] Barbara Syed MD New Patient (New patient consult) 06/04/2024 Travel from Last 3 Months Family History Medical History Relation Comments Hypertension Brother Asthma Father Diabetes Father Onset in 70s (ag e) Heart Disease Father Onset in his 70s . Lived to be 90. Hypertension Father Prostate Cancer Father Genetic Disorder Maternal Grandfather heart dise ase running in males Genetic Disorder Maternal Uncle all 4 uncles re quired heart surgery Alzheimer's disease Mother Osteoporosis Mother Asthma Sister 1 Diabetes Sister 1 Asthma Sister 2 Asthma Sister 3 Relation Status Comments Brother Alive Father (Age 90) Maternal Grandfather (Age 59) Maternal Grandmother (Age 89) Maternal Uncle Mother (Age 90) Sister 1 Alive Sister 2 Alive Sister 3 Alive Social History Tobacco Use Types Packs/Day Years Used Date Smoking Tobacco: Never Smokeless Tobacco: Never Tobacco Cessation:Counseling Given: Not Answered Alcohol Use Standard Drinks/Week Comments Not Currently 0 (1 standard drink = 0.6 oz pur e alcohol) socially Comments No Sex and Gender Information Value Date Recorded Sex Assigned at Female 06/02/2024 10:40 AM C JAVA DEVELOPER Legal Sex Female 4:07 PM CDT Gender Identity Not on file Sexual Orientation Not on file Occupation Industry Job Start Date Job 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[employer], [employer] Not on file Not on file Not on file Last Filed Vital Signs Vital Sign Reading Time Taken Comments Blood Pressure 152/80 06/04/2024 2:27 PM C JAVA DEVELOPER Pulse 87 06/04/2024 1:57 PM C JAVA DEVELOPER Temperature 36.1 C (97 F) 02/13/2022 2:45 PM CDT Respiratory Rate 18 02/13/2022 2:45 PM CDT Oxygen Saturation 98% 06/04/2024 1:57 PM C JAVA DEVELOPER Inhaled Oxygen Concentration - - Weight 62.1 kg (137 lb) 06/04/2024 1:57 PM C JAVA DEVELOPER Height 165.1 cm (5' 5 ) 06/04/2024 1:57 PM C JAVA DEVELOPER Body Mass Index 22.8 06/04/2024 1:57 PM C JAVA DEVELOPER Plan of Treatment Health Maintenance Due Date Last Done Comments Colorectal Cancer Screening Colonoscopy (10 Years) 1962 Annual Physical 1965 Hepatitis C 1980 Cervical Cancer Screening Pap with HPV Testing (Age 30 to 64) Every 5 Years 1992 Zoster Vaccines (1 of 2) 2012 COVID-19 Vaccine ( season) 2023 04/03/2021, 02/20/2021, 07/30/2020, Additional history exists Cervical Cancer Screening Pap Smear (Age 30 to 64) Every 3 Years 07/13/2025 07/13/2022 Cervical Cancer Screening with HPV 07/13/2025 Mammogram Screening 03/19/2026 03/19/2024, 09/02/2023, 03/04/2023, Additional history exists DTaP, Tdap and Td Vaccines (4 - Td or Tdap) 08/14/2033 08/15/2023, 02/06/2013, 04/29/2012, Additional history exists RSV Immunization or 60+ Years (1 - 1-dose 75+ series) 2037 Pneumococcal Vaccine: 50+ Years Completed 08/10/2021, 03/21/2005, 04/29/2004 Meningococcal B Vaccine Aged Out No l onger eligible based on patient's age to complete this topic Meningococcal Vaccine Aged Out No loki mariia eligible based on patient's age to complete this topic RSV Immunizations Under 20 Months Aged Out No longer eligible based on patient's age to complete this topic Procedures Procedure Name Priority Date/Time Associated Diagnosis Comments USE STRESS ECHO Felipe Wang MD Routine 06/23/2024 3:35 PM C JAVA DEVELOPER Essential (primary) hypertension Abnormal ECG Decreased exercise tolerance Family history of heart disease CARDIOLOGY STRESS TEST ONLY, EXERCISE Routine 06/23/2024 2:06 PM C JAVA DEVELOPER Essential (primary) hypertension Abnormal ECG Decreased exercise tolerance Family history of heart disease Palpitations Fatigue ELECTROCARDIOGRAM (NON MIDMARK ACQUIRED) Routine 06/04/2024 2:09 PM C JAVA DEVELOPER Essential (primary) hypertension MG SCREENING MARIELLE DIGI Routine 06/24/2013 3:44 PM C JAVA DEVELOPER from Last 3 Months or Most Recently Relevant to Health Maintenance Results * USE STRESS ECHO Felipe Wang MD (06/23/2024 3:35 PM C JAVA DEVELOPER) Anatomical Region Laterality Modality Cardiac Echocardiogram 06/23/2024 2:26 PM C JAVA DEVELOPER Narrative 06/23/2024 3:57 PM C JAVA DEVELOPER Stress Echocardiography Report Pat.Name: MARCOS MATCRYSTAL POWERS Pat.ID: [id number] .Date: 06/23/2024 Refer.: [id number], Yahaira ghotra y ewdprov ewdprov Exam Time: 2:26:00 PM Study Type:STRESS ECHO DOPPLER COLOR FLOW Height: 65 in Weight: 137 lb BSA: 1.68 m2 Age: 1 1960,64Y Sex: F BP: 174/74 HR: 86 bpm Sonogrphr: Gabbie Juan Pat. Stat.:Outpatient Reason for Study:Dyspnea on exertion Procedures: 2D, Doppler, Color Flow, Exercise Stress Echo, Definity was used to enhance endocardial definition. The study quality is technically good. Race: W ++++++++++++++++++++++++++++++++++++ SUMMARY: ++++++++++++++++++++++++++++++++++++ Overall Stress Interp: Normal Stress echo. No evidence of ischemia. 1. Clinically negative. 2. Electrocardiographically negative treadmill test for ischemia. 3. Adequate exercise capacity. 4. Echocardiographically negative for ischemia. 5. Parker Treadmill Score is 9.5 , which indicates low risk. 6. Blood pressure response was normal. 7. The quality of this study is good . 8. Stress echocardiogram shows overall low risk for a cardiac event. ++++++++++++++++++++++++++++++++++++ FINDINGS: ++++++++++++++++++++++++++++++++++++ LA: The left atrial size is normal. RA: Right atrial size is normal. MARKIE: No evidence of pericardial effusion. AV: The aortic valve is trileaflet. No evidence of aortic valve stenosis. Trace aortic regurgitation. MV: Structurally normal mitral valve. Mild mitral regurgitation. No evidence of mitral stenosis. There is no evidence of prolapse of either mitral valve leaflet(s). PV: Trace pulmonic regurgitation. No evidence of pulmonic valve stenosis. Pulmonic valve not well visualized. TV: Structurally normal tricuspid valve. A trace of tricuspid regurgitation. No evidence of tricuspid valve stenosis. Resting Function and Wall Motion LV: LV function is normal. Overall wall motion is normal. Estimated EF is 55-60%. All gomez are normal RV: RV function is normal. Stress Function and Wall Motion LV: LV function is normal. Overall stress wall motion is normal. Estimated EF is 60-65%. All gomez are normal RV: RV function is normal. ++++++++++++++++++++++++++++++++++++ STRESS: ++++++++++++++++++++++++++++++++++++ Baseline Vital Signs: Rhythm: Normal sinus rhythm HR: 86 bmp Rest BP: 174/74 Exercise Stress Echo Protocol: David Duration: 09:30 min:sec Stress Test Results: Max HR: 164 bmp Target HR: 158 bmp % Target: 104 % Max BP: 218/92 Max RPP: 12476 Contrast: Definity 2 ml O2 sat: 99 % Symptoms and Complications: Terminated: Target reached, leg fatigue Symptoms: leg fatigue Other: Normal blood pressure response to exercise. Stress ECG Interp: No ischemic S-T changes occurred with stress ++++++++++++++++++++++++++++++++++++ WALL MOTION: ++++++++++++++++++++++++++++++++++++ RESTING WALL MOTION: All gomez are normal Wall Index = 1 STRESS WALL MOTION: All gomez are normal Stress Wall Index = 1 <Electronic Signature> 06/23/2024 03:58 PM Barbara Syed M.D. <Revised Signature> 06/23/2024 03:58 PM Barbara Syed M.D. Procedure Note Barbara Syed MD - 06/23/2024 Stress Echocardiography Report Pat.Name: MAT GROSS Pat.ID: [id number] St.Date: 06/23/2024 Refer.: [id number], Yahaira conklin ewdprov ewdprov Exam Time: 2:26:00 PM Study Type:STRESS ECHO DOPPLER COLOR FLOW Height: 65 in Weight: 137 lb BSA: 1.68 m2 Age: 1 1960,64Y Sex: F BP: 174/74 HR: 86 bpm Sonogrphr: Gabbie Juan Pat. Stat.:Outpatient Reason for Study:Dyspnea on exertion Procedures: 2D, Doppler, Color Flow, Exercise Stress Echo, Definity was used to enhance endocardial definition. The study quality is technically good. Race: W ++++++++++++++++++++++++++++++++++++ SUMMARY: ++++++++++++++++++++++++++++++++++++ Overall Stress Interp: Normal Stress echo. No evidence of ischemia. 1. Clinically negative. 2. Electrocardiographically negative treadmill test for ischemia. 3. Adequate exercise capacity. 4. Echocardiographically negative for ischemia. 5. Parker Treadmill Score is 9.5 , which indicates low risk. 6. Blood pressure response was normal. 7. The quality of this study is good . 8. Stress echocardiogram shows overall low risk for a cardiac event. ++++++++++++++++++++++++++++++++++++ FINDINGS: ++++++++++++++++++++++++++++++++++++ LA: The left atrial size is normal. RA: Right atrial size is normal. MARKIE: No evidence of pericardial effusion. AV: The aortic valve is trileaflet. No evidence of aortic valve stenosis. Trace aortic regurgitation. MV: Structurally normal mitral valve. Mild mitral regurgitation. No evidence of mitral stenosis. There is no evidence of prolapse of either mitral valve leaflet(s). PV: Trace pulmonic regurgitation. No evidence of pulmonic valve stenosis. Pulmonic valve not well visualized. TV: Structurally normal tricuspid valve. A trace of tricuspid regurgitation. No evidence of tricuspid valve stenosis. Resting Function and Wall Motion LV: LV function is normal. Overall wall motion is normal. Estimated EF is 55-60%. All gomez are normal RV: RV function is normal. Stress Function and Wall Motion LV: LV function is normal. Overall stress wall motion is normal. Estimated EF is 60-65%. All gomez are normal RV: RV function is normal. ++++++++++++++++++++++++++++++++++++ STRESS: ++++++++++++++++++++++++++++++++++++ Baseline Vital Signs: Rhythm: Normal sinus rhythm HR: 86 bmp Rest BP: 174/74 Exercise Stress Echo Protocol: David Duration: 09:30 min:sec Stress Test Results: Max HR: 164 bmp Target HR: 158 bmp % Target: 104 % Max BP: 218/92 Max RPP: 45370 Contrast: Definity 2 ml O2 sat: 99 % Symptoms and Complications: Terminated: Target reached, leg fatigue Symptoms: leg fatigue Other: Normal blood pressure response to exercise. Stress ECG Interp: No ischemic S-T changes occurred with stress ++++++++++++++++++++++++++++++++++++ WALL MOTION: ++++++++++++++++++++++++++++++++++++ RESTING WALL MOTION: All gomez are normal Wall Index = 1 STRESS WALL MOTION: All gomez are normal Stress Wall Index = 1 <Electronic Signature> 06/23/2024 03:58 PM Barbara Syed M.D. <Revised Signature> 06/23/2024 03:58 PM Barbara Syed M.D. us Barbara Syed MD ECHO Edited Result - Final * ELECTROCARDIOGRAM (06/04/2024 2:09 PM C JAVA DEVELOPER) 06/04/2024 2:09 PM C JAVA DEVELOPER [facility] - 06/05/2024 6:28 PM C JAVA DEVELOPER [facility] Test Date: 2024-06-04 Pat Name: MAT GROSS Department: 112 Room: Gender: Female Radiotelegrapher: candelario : 1960 Requested By: BARBARA SYED Order Number: [id number] Reading MD: Barbara Syed Measurements Intervals Sinclair Rate: 87 P: 74 MD: 168 QRS: 44 QRSD: 73 T: 59 QT: 335 QTc: 403 Interpretive Statements SINUS RHYTHM SEPTAL MYOCARDIAL INFARCTION, PROBABLY OLD No prior electrocardiogram available C JAVA DEVELOPER Procedure Note Barbara Syed MD - 06/05/2024 Jomar Contreras [place] Test Date: 2024-06-04 Pat Name: MAT GROSS Department: 112 Room: Gender: Female Radiotelegrapher: candelario : 1960 Requested By: BARBARA SYED Order Number: [id number] Reading MD: Barbara Syed Measurements Intervals Sinclair Rate: 87 P: 74 MD: 168 QRS: 44 QRSD: 73 T: 59 QT: 335 QTc: 403 Interpretive Statements SINUS RHYTHM SEPTAL MYOCARDIAL INFARCTION, PROBABLY OLD No prior electrocardiogram available C JAVA DEVELOPER us Barbara Syed MD PROCEDURES-ORDERABLE NO CHARGE Final Result SCARLETT SOUZA * MG SCREENING MARIELLE DIGI (06/24/2013 3:44 PM C JAVA DEVELOPER) Anatomical Region Laterality Modality Breast Bilateral Mammography 06/24/2013 3:44 PM C JAVA DEVELOPER 06/24/2013 3:44 PM C JAVA DEVELOPER Narrative 06/25/2013 6:31 AM C JAVA DEVELOPER MAT GROSS ORDERING MD: HAN FELICIANO MD ACCT: [id number] ADMIT/SERVICE DATE: 06/24/13 DISCHARGE DATE: : 1960 PT TYPE: REG CLI SEX: F ORD SITE: [facility] STUDY DATE REPORT # PROCEDURE CODE PROCEDURE 06/24/13 [id number] SCMAMDGB MG SCREEN MAMMO DIGITAL BI EXTORDERID [id number] ACCESSION NUMBER [id number] CHART DOCUMENT IMPRESSION: BILATERAL BENIGN-TYPE CALCIFICATIONS. ASSESSMENT: BI-RADS 2, BENIGN, DENSE. RECOMMENDATION: ROUTINE SCREENING MAMMOGRAPHY. HISTORY: NO FAMILY HISTORY OF BREAST CANCER. NO PRESENT BREAST RELATED COMPLAINT. BILATERAL SCREENING MAMMOGRAM TECHNIQUE: CC AND MLO VIEWS BILATERALLY. FINDINGS: EXAMINATION SHOWS BREASTS ARE DENSE BILATERALLY. COMPARISON WITH MULTIPLE STUDIES DATING BACK TO 04/15/07 SHOWS NO DEFINITE INTERVAL CHANGE FROM PRIOR EXAMS. SCATTERED BENIGN-TYPE CALCIFICATIONS ARE SEEN. DIGITAL MAMMOGRAPHIC VIEWS REVIEWED BY R2 IMAGE CHECK. ELECTRONICALLY SIGNED BY: VICKIE HEARD M.D. 06/25/2013 06:30 VICKIE HEARD M.D. P #[id number] P/MA CC: Mirtha BARNES M.D. Procedure Note Jackeline Rivers MD - 07/17/2018 AMT GROSS ORDERING MD: HAN FELICIANO MD ACCT: [id number] ADMIT/SERVICE DATE: 06/24/13 DISCHARGE DATE: : 1960 PT TYPE: REG CLI SEX: F ORD SITE: [facility] STUDY DATE REPORT # PROCEDURE CODE PROCEDURE 06/24/13 [id number] SCMAMDGB MG SCREEN MAMMO DIGITAL BI EXTORDERID [id number] ACCESSION NUMBER [id number] CHART DOCUMENT IMPRESSION: BILATERAL BENIGN-TYPE CALCIFICATIONS. ASSESSMENT: BI-RADS 2, BENIGN, DENSE. RECOMMENDATION: ROUTINE SCREENING MAMMOGRAPHY. HISTORY: NO FAMILY HISTORY OF BREAST CANCER. NO PRESENT BREAST RELATED COMPLAINT. BILATERAL SCREENING MAMMOGRAM TECHNIQUE: CC AND MLO VIEWS BILATERALLY. FINDINGS: EXAMINATION SHOWS BREASTS ARE DENSE BILATERALLY. COMPARISON WITH MULTIPLE STUDIES DATING BACK TO 04/15/07 SHOWS NODEFINITE INTERVAL CHANGE FROM PRIOR EXAMS. SCATTERED BENIGN-TYPE CALCIFICATIONSARE SEEN. DIGITAL MAMMOGRAPHIC VIEWS REVIEWED BY R2 IMAGE CHECK. ELECTRONICALLY SIGNED BY: VICKIE HEARD M.D. 06/25/2013 06:30 VICKIE HEARD M.D. P #[id number] P/MA CC: Mirtha BARNES M.D. us Generic Conversion Md RIVERS MAMMO Final R esult from Last 3 Months or Most Recently Relevant to Health Maintenance Insurance [facility] Care Teams Lip Reading Teacher Relationship Specialty Start Date End Date Sharron Lamar MD [address] [place] [id number] PCP - General INTERNAL MEDICINE 06/04/24
--- OUTSIDE RECORDS SUMMARY | 2024-08-24 08:04 | XMS_ITS | Encounter Summary ---
Author Organization [facility] Address [facility] [place] [address] Care Team Providers Care Dissolver Operator Name Role Phone Sharron Lamar MD Primary Care Provider [phone]- [phone] Encounter Details Date Type Department Care Team (Late st Contact Info) Description 06/22/2024 [employer] Message Enc [facility] [address] [place], [facility] Provider Stress echo instructions Social History Tobacco Use Types Packs/Day Years Used Date Smoking Tobacco: Never Smokeless Tobacco: Never Alcohol Use Standard Drinks/Week Comments Not Currently 0 (1 standard drink = 0.6 oz pur e alcohol) socially Comments No Sex and Gender Information Value Date Recorded Sex Assigned at Female 06/02/2024 10:40 AM COUNTER SUPPLY WORKER Legal Sex Female 4:07 PM CDT Gender Identity Not on file Sexual Orientation Not on file Occupation Industry Job Start Date Job 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[employer], [employer]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
--- OUTSIDE RECORDS SUMMARY | 2024-08-24 08:04 | XMS_ITS | Referral Summary ---
Author Organization [facility] at the Medical Office Building Address [address] [place] [phone] Care Team Providers Care Bridge Painter Name Role Phone Sharron Lamar MD Primary Care Provider Encounters Date Type Department Care Team Description 08/20/2024 1:00 PM CDT Office Visit [facility] Primary Care [address] [place] [phone] Sharron Lamar MD Routine general medical examination at a health care facility (Primary Dx); Moderate persistent asthma without complication; Vitamin D deficiency; Age-related osteoporosis without current pathological fracture; Pancreatic cyst from Last 3 Months Allergies Active Allergy Reactions Criticality Noted Date [...] 15 g 1 2 Active Safia Palacio [facility] spacer USE WITH INHALER FOR [...] 9:01 PM CDT): Cont daily vitamin d [id number] international units daily Assessment & Plan (02/05/2019 12:06 PM CDT): Recheck now Continue vit d Palpitation 02/05/2019 Assessment & Plan (07/24/2020 9:00 PM CDT): Stable, only occasionally bothers her Assessment & Plan (02/05/2019 12:07 PM CDT): lilysergio reviewed 07/28/2018 3 apc's, vpc's but no [...] in between gynes now Referral placed for [facility] gyne for pap Assessment & Plan (07/24/2020 [...] & Plan (02/05/2019 12:05 PM CDT): flonase [place] nasal spray Singular/zyrtec zapak Allergic 10/08/2023 Overview (07/24/2020): Seasonal Allergies Assessment & Plan (07/24/2020 9:01 PM CDT): Cont zyrtec/claritin and prn benadryl Cont singulair Immunizations Immunization Administration Dates Next Due Influenza, Quadrivalent, Rec ombinant, Egg Free, Preservative Free, Intramuscular 01/30/2018 Influenza, Quadrivalent, Spl it, Preservative Free, Intramuscular 02/06/2022,01/29/2020,02/05/2019,01/29,02/24/2016 Influenza, Trivalent, Preser vative Free, Intramuscular 02/04/2024 Influenza, Unspecified 02/01/2023 Pfizer SARS-CoV-2 Monovalent Vaccination (12+ Yrs) PURPLE 04/03/2021,02/20/2021,07/09/2020,06/13 Pneumococcal Conjugate PCV 13 04/29/2004 Pneumococcal Polysaccharide PPV23 08/10/2021 TD Preservative Free 04/29/2012 Td, Unspecified 01/26/2002,08/26/1992 Tdap 08/15/2023,04/29/2012 ZOSTER Recombinant 12/31/2023,09/09/2023 Social History Tobacco Use Types Packs/Day Years [...] on file Legal Sex Female 9:04 PM LABELLING MACHINE OPERATOR Gender Identity Female 07/19/2020 7:28 PM CDT Sexual Orientation Not on file Last Filed Vital Signs Vital Sign Reading Time Taken Comments Blood Pressure 128/70 08/20/2024 12:48 PM CDT Pulse 80 08/20/2024 12:48 PM CDT Temperature 36.3 C (97.4 F) 08/20/2024 12:48 PM CDT Respiratory Rate 18 05/21/2024 9:42 AM LABELLING MACHINE OPERATOR Oxygen Saturation 96% 08/20/2024 12:48 PM CDT Inhaled Oxygen Concentration - - Weight 62.1 kg (137 lb) 08/20/2024 12:48 PM CDT Height 165.1 cm (5' 5 ) 08/20/2024 12:48 PM CDT Body Mass Index 22.8 08/20/2024 12:48 PM CDT Plan of Treatment Not on file Procedures Procedure Name Priority Date/Time Associated Diagnosis Comments SCREENING MAMMOGRAM BILATERAL W [place]ED[place] Schedule Routine, Read Routine (OP Routine) 03/19/2024 12:31 PM LABELLING MACHINE OPERATOR Screening mammogram, encounter for PAP AND HIGH RISK HPV, REFLEX TO GENOTYPING Routine 07/13/2022 8:19 AM CDT Well woman exam HM COLONOSCOPY Routine 04/17/2019 from Last 3 Months or Most Recently Relevant to Health Maintenance Results * Screening Mammogram Bilateral W [place] (03/19/2024 12:31 PM LABELLING MACHINE OPERATOR) Anatomical Region Laterality Modality Breast Bilateral Mammography Narrative 03/19/2024 11:37 AM LABELLING MACHINE OPERATOR Examination: Screening Mammogram Bilateral W [place]: Clinical: [...] CDT 07/16/2022 8:19 AM CDT Narrative PATHOLOGY [facility] - 07/18/2022 1:52 PM CDT [facility] Department of Pathology [address] [place] [address] Final Report with Addendum Note to Patients: [...] the details. Patient Name: MAT GROSS Address: [address] [place] [address] Gender: F : 1960 (Age: 62) Service: Location: [facility] : [id number] [facility] #: [id number] Patient Type: [facility] SPECIMEN Taken: 07/13/2022 Received: 07/16/2022 Accessioned:: 07/17/2022 Reported: 07/18/2022 Physician(s): Irma Harrison M.D. [facility] Diagnosis: Source of Specimen: SCREENING THIN PREP IMAGED PAP w/ HPV: Specimen Adequacy: - Satisfactory for evaluation; endocervical/transformation zone component present General Categorization: - Negative for intraepithelial lesion or malignancy EMRE Arenas(ASCP) Report Electronically Reviewed and Signed Out By EMRE Arenas(ASCP) 07/18/2022 13:52:35Addenda: HPV Test Interpretation NEGATIVE for types 16, 18, 31, 33, 35, 39, 45, 51, 52, 56, 58, 59, 66 and 68. Test performed utilizing Gen-Probe Aptima assay. EMRE Arenas(ASCP)Report Electronically Reviewed and Signed Out By EMRE Arenas(ASCP) 07/17/2022 15:04:29 Specimen(s) Received: A: SCREENING THIN [...] determined by the Surgical Pathology Department at [facility] as part of an ongoing fuel quality tech program and in compliance with federally mandated [...] characteristics determined by the Surgical Pathology Department [facility]. It has not been cleared or approved by the U. S. Food and Drug Administration. Irma Harrison MD LAB CYTOLOGY ORDERABLES Final Result PATHOLOGY [facility] * COLONOSCOPY (04/17/2019) Scribed HM Colonoscopy Normal Mariam Serrano MD HEALTH MAINTENANCE Final Result from Last 3 Months or Most Recently Relevant to Health Maintenance Insurance [employer] ACCESS CHOICE [employer] ACCESS CHOICE [employer] ACCESS CHOICE Care Teams Bridge Painter Relationship Specialty Start Date End Date Sharron Lamar MD [address] [place] [phone] PCP - General Internal Medicine 05/23/22
== END 2024-08-24 07:56 | disposition home or self-care (01) ==
PROVIDERS: PCP Internal Medicine; Visit Provider Surgery
DX: R93.5 Abnormal findings on diagnostic imaging of other abdominal regions, including retroperitoneum (principal); K86.2 Cyst of pancreas
CPT/HCPCS: 76705